=== PATIENT | female | born 1970 | race African-American/Black ===

== ENCOUNTER 2016-11-28 08:42 | Emergency (ER) | payer MEDICAID ==
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
[2016-11-28] MEDS ORDERED: HYDROCODONE/ACETAMINOPHEN 5-325 MG TABLET PO ONE (09:39)
[2016-11-28 11:15] VITALS: BP 120/80
== END 2016-11-28 10:58 | disposition home or self-care (01) ==
LOC: ER 08:42
DX: M54.2 Cervicalgia (principal); M25.521 Pain in right elbow; M54.89 Other dorsalgia; G89.29 Other chronic pain; M25.511 Pain in right shoulder; I10 Essential (primary) hypertension; K21.9 Gastro-esophageal reflux disease without esophagitis; Z91.013 Allergy to seafood
CPT/HCPCS: 72050; 99283

== ENCOUNTER 2017-05-14 21:14 | Emergency (ER) | payer MEDICAID ==
[2017-05-14 22:56] LABS: AMORPHOUS SEDIMENT,URINE TRACE /HPF; APPEARANCE,URINE SLIGHTLY-CLOUDY; BILIRUBIN,URINE NEGATIVE (NEGATIVE); GLUCOSE, URINE NEGATIVE (NEGATIVE); KETONES,URINE NEGATIVE (NEGATIVE); LEUKOCYTE ESTERASE,URINE MODERATE (NEGATIVE); NITRITE,URINE NEGATIVE (NEGATIVE); PROTEIN,URINE 30 mg/dL (NEGATIVE); URINE SPECIFIC GRAVITY 1.014; UROBILINOGEN,URINE NEGATIVE mg/dL (<2.0)
[2017-05-14] MEDS ORDERED: SULFAMETHOXAZOLE/TRIMETHOPRIM 800-160 MG TABLET PO ONE (23:18)
[2017-05-14] MEDS ORDERED: PHENAZOPYRIDINE HCL 200 MG TABLET PO ONE (23:19)
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
[2017-05-14 23:51] VITALS: BP 142/86
== END 2017-05-14 23:51 | disposition home or self-care (01) ==
LOC: ER 21:14
DX: N39.0 Urinary tract infection, site not specified (principal); I10 Essential (primary) hypertension; J45.909 Unspecified asthma, uncomplicated; Z91.013 Allergy to seafood; Z90.710 Acquired absence of both cervix and uterus
CPT/HCPCS: 99283; 87086; 82962; 81025; 87088; 81001; 87186; J3490 ×2

== ENCOUNTER 2017-09-13 11:53 | Emergency (ER) | payer MEDICAID ==
[2017-09-13 13:12] VITALS: BP 135/95
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
== END 2017-09-13 15:52 | disposition home or self-care (01) ==
LOC: ER 11:53
DX: M79.5 Residual foreign body in soft tissue (principal); M79.631 Pain in right forearm; R20.0 Anesthesia of skin; R20.2 Paresthesia of skin; Z91.013 Allergy to seafood; I10 Essential (primary) hypertension; J45.909 Unspecified asthma, uncomplicated
CPT/HCPCS: 99283

== ENCOUNTER 2017-11-04 15:13 | Emergency (ER) | payer MEDICAID ==
[2017-11-04] MEDS ORDERED: DIPHENHYDRAMINE HCL 50 MG/ML VIAL IV ONE (16:04)
[2017-11-04] MEDS ORDERED: METOCLOPRAMIDE HCL INJ/PF 10 MG/2 ML SDV IV ONE (16:05)
[2017-11-04] MEDS ORDERED: NORMAL SALINE 1000 ML 1,000 ML IV ONE (16:05)
[2017-11-04] MEDS ORDERED: KETOROLAC TROMETHAMINE INJ/PF 30 MG/1 ML SDV IV ONE (16:05)
--- NOTE | 2017-11-04 16:08 | ER Document Report ---
ED General - General Chief Complaint: Chest Pain Stated Complaint: NAUSEA,HEADACHE Time Seen by Provider: 11/04/17 15:51 Mode of Arrival: Ambulatory Information source: Patient Notes: 47-year-old female with a history of hypertension, asthma presents with complaint of headache that started 2 days prior to arrival. Patient states headache was gradual in onset. She describes it as initially starting at the back of her head but now located in her forehead. She describes it as a dull ache. She has associated nausea, photophobia. She denies any recent head injury. She denies fever, chills, chest pain, shortness of breath. She states she has had some fluttering of her chest. She does admit to frequent similar headaches. She has tried Tylenol without relief. TRAVEL OUTSIDE OF THE [place] IN LAST 30 DAYS: No - HPI Onset: Yesterday Onset/Duration: Gradual, Intermittent Quality of pain: Achy Severity: Mild Pain Level: 1 Associated symptoms: Body/muscle aches, Nausea, Shortness of breath. denies: Chest pain, Productive cough, Fever, Vomiting, Sinus pain/drainage Exacerbated by: Movement Relieved by: Denies Similar symptoms previously: Yes - Admits to similar frequent headaches. - Related Data Allergies/Adverse Reactions: shellfish derived Allergy (Severe, Verified 11/28/16 08:51) shrimp Allergy (Severe, Verified 11/28/16 08:51) Past Medical History - General Information source: Patient - Social History Smoking Status: Never Smoker Frequency of alcohol use: None Drug Abuse: None Lives with: Family Family History: DM, Hypertension, Malignancy, Thyroid Disfunction - Past Medical History Cardiac Medical History: Reports: Hx Hypertension Pulmonary Medical History: Reports: Hx Asthma Renal/ Medical History: Reports: Hx Ectopic . Denies: Hx Peritoneal Dialysis GI Medical History: Reports: Hx Gastroesophageal Reflux Disease Musculoskeltal Medical History: Reports Hx Musculoskeletal Trauma - Nose and finger fracture Psychiatric Medical History: Reports: Hx Anxiety Traumatic Medical History: Reports: Hx Fractures - Nose and finger Past Surgical History: Reports: Hx Section, Hx Gynecologic Surgery - Right oophorectomy for tubal , Hx Hysterectomy, Hx Oral Surgery - With symptoms, Hx Umbilical Hernia - Immunizations Immunizations up to date: Yes Hx Diphtheria, Pertussis, Tetanus Vaccination: No - Unknown Review of Systems - Review of Systems Constitutional: denies: Fever, Weakness EENT: denies: Eye pain, Eye discharge, Blurred vision, Nose congestion, Sinus pressure Cardiovascular: Palpitations Respiratory: Short of breath Gastrointestinal: Nausea. denies: Vomiting Genitourinary: denies: Dysuria Neurological/Psychological: Other - Headache Physical Exam - Vital signs Vitals: Pulse Resp BP Pulse Ox 89 16 136/94 H 96 11/04/17 15:50 11/04/17 15:50 11/04/17 15:50 11/04/17 15:50 - General General appearance: Appears well, Alert In distress: None - HEENT Head: Normocephalic, Atraumatic Eyes: Normal Conjunctiva: Normal Cornea: Normal - Temples nontender bilaterally Extraocular movements intact: Yes Pupils: PERRL Fundascopic: Normal Nerve palsy: No Visual yo normal: Yes Tympanic membrane: Normal Sinus: Normal Nasal: Normal Mucous membranes: Dry Neck: No: Brudzinski, Kernig's, Meningismus, Thyromegally - Respiratory Respiratory status: No respiratory distress. 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 Sensory: Normal - Psychological Associated symptoms: Normal affect, Normal mood Course - Re-evaluation Re-evalutation: 11/04/17 17:50 On reevaluation patient states her headache has improved. 11/04/17 17:53 Glucose found to be 72 which is not surprising since the patient has not eaten anything all day. She was given kai crackers, cranberry juice. Patient tolerating PO fluids. 11/04/17 18:07 47-year-old female with a history of hypertension and asthma presents with complaint of headache that started 1 day prior to arrival. Patient states it was gradual in onset, has been intermittent and now located in her forehead and described as an aching feeling. She has had associated nausea and photophobia.She admits to not eating anything today. She has tried Tylenol without relief. Upon arrival vitals were reviewed. Patient has a normal neurologic exam without evidence of meningismus or nuchal rigidity. BMP showed A glucose of 72 and normal kidney function. Patient received IV fluids, Reglan , Benadryl, Toradol. On reevaluation patient states that she is feeling better. I have low suspicion for meningitis, intracranial abnormality. Patient was tolerating food and fluids prior to discharge.Patient was discharged home with a prescription for Motrin. Laboratory 11/04/17 16:35 Sodium 140.5 Potassium 4.0 Chloride 101 Carbon Dioxide 28 Anion Gap 12 BUN 11 Creatinine 0.76 Est GFR ( Amer) > 60 Est GFR (Non-Af Amer) > 60 Glucose 72 L Calcium 9.7 Magnesium 2.0 Total Bilirubin 0.9 Direct Bilirubin 0.1 Neonat Total Bilirubin Not Reportable Neonat Direct Bilirubin Not Reportable Neonat Indirect Bili Not Reportable AST 27 ALT 38 Alkaline Phosphatase 68 Total Protein 7.0 Albumin 4.1 Chest X-Ray 11/04/17 16:09 IMPRESSION: NO SIGNIFICANT RADIOGRAPHIC FINDING IN THE CHEST. - Vital Signs Vital signs: Temp Pulse Resp BP Pulse Ox 89 16 136/94 H 96 11/04/17 15:50 11/04/17 15:50 11/04/17 15:50 11/04/17 15:50 - Laboratory Result Diagrams: 11/04/17 16:35 Laboratory results interpreted by me: 11/04/17 16:35 Glucose 72 L Discharge - Discharge Clinical Impression: Headache, Palpitations Condition: Good Disposition: HOME, SELF-CARE Instructions: Headache ([facility]), Palpitations (Irregular or Rapid Heartrate) ([facility]) Prescriptions: Ibuprofen [Motrin 600 Mg Tablet] 600 mg PO TID #15 tablet Referrals: MARCELO SHUKLA PA-C [Primary Care Provider] - Follow up as needed
--- NOTE | 2017-11-04 16:19 | EKG REPORT ---
SEVERITY:- NORMAL ECG - SINUS RHYTHM : Confirmed by: Kashif Briscoe MD 04-Nov-2017 16:18:37
--- NOTE | 2017-11-04 17:17 | RADIOLOGY REPORT (SQ) ---
EXAM DESCRIPTION: CHEST PA/LAT COMPLETED DATE/TIME: 11/04/2017 5:10 pm REASON FOR STUDY: palpatations COMPARISON: AP chest 12/13/2015 EXAM PARAMETERS: NUMBER OF VIEWS: two views TECHNIQUE: Digital Frontal and Lateral radiographic views of the chest acquired. RADIATION DOSE: NA LIMITATIONS: none FINDINGS: LUNGS AND PLEURA: No opacities, masses or pneumothorax. No pleural effusion. MEDIASTINUM AND HILAR STRUCTURES: No masses or contour abnormalities. HEART AND VASCULAR STRUCTURES: Heart normal size. No evidence for failure. BONES: No acute findings. HARDWARE: None in the chest. OTHER: No other significant finding. IMPRESSION: NO SIGNIFICANT RADIOGRAPHIC FINDING IN THE CHEST. TECHNICAL DOCUMENTATION: JOB ID: [id number] [employer]- All Rights Reserved Reading location - IP/workstation name: [email or web address]
[2017-11-04 17:35] LABS: ALANINE AMINOTRANSFERASE 38 U/L (9-52); ALBUMIN 4.1 g/dL (3.5-5.0); ALKALINE PHOSPHATASE 68 U/L (38-126); ANION GAP 12 (5-19); ASPARTATE AMINO TRANSFERASE 27 U/L (14-36); BILIRUBIN,DIRECT 0.1 mg/dL (0.0-0.4); BILIRUBIN,TOTAL 0.9 mg/dL (0.2-1.3); BLOOD UREA NITROGEN 11 mg/dL (7-20); CALCIUM 9.7 mg/dL (8.4-10.2); CARBON DIOXIDE 28 mmol/L (22-30); CHLORIDE 101 mmol/L (98-107); GLUCOSE 72 mg/dL (75-110); SODIUM 140.5 mmol/L (137-145)
[2017-11-04 18:37] VITALS: BP 141/74
== END 2017-11-04 18:47 | disposition home or self-care (01) ==
LOC: ER 15:13
DX: R51 Headache (principal); R00.2 Palpitations; R07.9 Chest pain, unspecified; R11.0 Nausea; M79.1 Myalgia; I10 Essential (primary) hypertension; Z91.013 Allergy to seafood
CPT/HCPCS: 93005; 99285; 96361; 96374; 96375; 36415; 83735; 80053; 71046; 93010; J1200; J1885; J2765; J7030

== ENCOUNTER 2018-03-11 18:02 | Emergency (ER) | payer MEDICAID ==
--- NOTE | 2018-03-11 20:00 | ER Document Report ---
ED General - General Chief Complaint: Knee Pain Stated Complaint: R KNEE PAIN Time Seen by Provider: 03/11/18 19:40 Mode of Arrival: Ambulatory Information source: Patient Notes: 47-year-old female patient presents to the emergency department with multiple complaints. Patient complains of bilateral lower extremity swelling with pain to the right lower extremity, patient describes the pain as a pressure from the swelling. Patient also complains of productive cough with intermittent pink sputum. Patient does report that she has had significant weight gain over the last few months. Patient has been seen by her primary care provider, Marcelo pang who did refer her to a building construction teacher for evaluation of the edema however this was at least 6 months ago. Patient denies any chest pain, shortness of breath or fever. TRAVEL OUTSIDE OF THE [place] IN LAST 30 DAYS: No - Related Data Allergies/Adverse Reactions: shellfish derived Allergy (Severe, Verified 11/28/16 08:51) shrimp Allergy (Severe, Verified 11/28/16 08:51) Past Medical History - General Information source: Patient - Social History Smoking Status: Never Smoker Frequency of alcohol use: None Drug Abuse: None Lives with: Spouse/Significant other Family History: DM, Hypertension, Malignancy, Thyroid Disfunction - Medical History Medical History: Negative - Past Medical History Cardiac Medical History: Reports: Hx Hypertension Pulmonary Medical History: Reports: Hx Asthma Renal/ Medical History: Reports: Hx Ectopic . Denies: Hx Peritoneal Dialysis GI Medical History: Reports: Hx Gastroesophageal Reflux Disease Musculoskeletal Medical History: Reports Hx Musculoskeletal Trauma - Nose and finger fracture Psychiatric Medical History: Reports: Hx Anxiety Traumatic Medical History: Reports: Hx Fractures - Nose and finger Past Surgical History: Reports: Hx Abdominal Surgery - umbilical hernia, Hx Section, Hx Gynecologic Surgery - Right oophorectomy for tubal , Hx Hysterectomy, Hx Oral Surgery - With symptoms, Hx Umbilical Hernia - Immunizations Immunizations up to date: Yes Hx Diphtheria, Pertussis, Tetanus Vaccination: No - Unknown Review of Systems - Review of Systems Constitutional: See HPI EENT: No symptoms reported Cardiovascular: No symptoms reported Respiratory: No symptoms reported Gastrointestinal: No symptoms reported Genitourinary: No symptoms reported Female Genitourinary: No symptoms reported Musculoskeletal: No symptoms reported Skin: No symptoms reported Hematologic/Lymphatic: No symptoms reported Neurological/Psychological: No symptoms reported Physical Exam - Vital signs Vitals: Temp Pulse Resp BP Pulse Ox 98.6 F 104 H 18 128/79 H 99 03/11/18 18:13 03/11/18 18:13 03/11/18 18:13 03/11/18 18:13 03/11/18 18:13 - Notes Notes: PHYSICAL EXAMINATION: GENERAL: Well-appearing, well-nourished and in no acute distress. HEAD: Atraumatic, normocephalic. EYES: Pupils equal round and reactive to light, extraocular movements intact, conjunctiva are normal. ENT: Nares patent, oropharynx clear without exudates. Moist mucous membranes. NECK: Normal range of motion, supple without lymphadenopathy LUNGS: Breath sounds clear to auscultation bilaterally and equal. No wheezes rales or rhonchi. HEART: Regular rate and rhythm without murmurs ABDOMEN: Soft, nontender, nondistended abdomen. No guarding, no rebound. No masses appreciated. Female : deferred Musculoskeletal: Normal range of motion, nonpitting edema to bilateral lower extremities, swelling is increased to the right lower extremity. No cyanosis. NEUROLOGICAL: Cranial nerves grossly intact. Normal speech, normal gait. Normal sensory, motor exams PSYCH: Normal mood, normal affect. SKIN: Warm, Dry, normal turgor, no rashes or lesions noted. Course - Re-evaluation Re-evalutation: 03/11/18 19:58 Patient has multiple complaints of most concern to her is her leg swelling bilaterally, swelling is slightly worse to the right lower extremity patient denies any specific pain, patient does report a discomforts due to the swelling pressure. Patient was seen by building construction teacher and cleared after an echocardiogram was done and showed that she had some type of regurgitation that patient reports they are going to monitor her for. Patient does report that she has a productive cough with intermittent pink sputum. Patient physical examination is unremarkable other than the swelling to her lower extremities. I will order basic labs to ensure that patient does not having any infectious process or CHF. CBC, BNP and comprehensive metabolic panel are unremarkable. Urinalysis with large leukocyte esterase. Will treat patient for urinary tract infection, will send urine for culture. Patient will follow up with her primary care provider in the next 3-5 days for a follow-up. - Vital Signs Vital signs: Temp Pulse Resp BP Pulse Ox 98.8 F 78 16 130/84 H 99 03/11/18 21:06 03/11/18 21:06 03/11/18 21:06 03/11/18 21:06 03/11/18 21:06 - Laboratory Result Diagrams: 03/11/18 20:06 03/11/18 20:06 Laboratory results interpreted by me: 03/11/18 03/11/18 19:52 20:06 AST 43 H Urine Blood SMALL H Urine Urobilinogen 2.0 H Ur Leukocyte Esterase LARGE H Discharge - Discharge Clinical Impression: Urinary tract infection Qualifiers: Urinary tract infection type: site unspecified Hematuria presence: without hematuria Qualified Code(s): N39.0 - Urinary tract infection, site not specified Disposition: HOME, SELF-CARE Additional Instructions: Urinary Tract Infection Your evaluation indicates that you have a urinary tract infection. This is due to germs growing in the bladder. This is a common problem. This infection usually responds quickly to antibiotics. Your antibiotic should be taken exactly as prescribed. Drink plenty of fluids -- three to four quarts a day. Occasionally, a bladder anesthetic will be prescribed to help stop the feeling of urgency until the antibiotic has a chance to clear the infection. This may cause your urine to be dark orange. Certain urine infections require a culture. If the doctor obtained a culture, the results will be back in two days. You should call to see if a change in treatment is needed. A repeat urinalysis after you finish treatment is often recommended. The physician will let you know if further testing is required. Call the doctor if you develop fever, chills, flank pain, inability to urinate, or blood in the urine. Please take the antibiotics as prescribed. Complete the entire course of antibiotics even if you are feeling better or not having symptoms. Your blood work today was normal. There is no evidence of any congestive heart failure or infection. I would like you to follow-up with your primary care provider Marcelo pang early this week for a follow-up for your peripheral edema. Prescriptions: Cephalexin Monohydrate [Keflex 500 mg Capsule] 500 mg PO Q6H 5 Days #20 capsule Forms: Return to Work Referrals: MARCELO PANG PA-C [Primary Care Provider] - Follow up as needed
[2018-03-11 20:16] LABS: APPEARANCE,URINE SLIGHTLY-CLOUDY; BILIRUBIN,URINE NEGATIVE (NEGATIVE); COLOR,URINE YELLOW; GLUCOSE, URINE NEGATIVE (NEGATIVE); KETONES,URINE NEGATIVE (NEGATIVE); LEUKOCYTE ESTERASE,URINE LARGE (NEGATIVE); NITRITE,URINE NEGATIVE (NEGATIVE); PROTEIN,URINE NEGATIVE (NEGATIVE); URINE SPECIFIC GRAVITY 1.013
[2018-03-11 20:20] LABS: ABSOLUTE BASOPHILS # (AUTO) 0.1 10^3/uL (0.0-0.2); ABSOLUTE EOSINOPHILS # (AUTO) 0.1 10^3/uL (0.0-0.6); ABSOLUTE LYMPHOCYTES (AUTO) 2.8 10^3/uL (0.5-4.7); ABSOLUTE MONOCYTES (AUTO) 0.6 10^3/uL (0.1-1.4); ABSOLUTE NEUT (AUTO) 3.3 10^3/uL (1.7-8.2); EOSINOPHILS % (AUTO) 1.8 % (0-6); HEMATOCRIT 38.1 % (36.0-47.0); HEMOGLOBIN 12.9 g/dL (12.0-15.5); LYMPHOCYTES % (AUTO) 40.7 % (13-45); MEAN CORPUSCULAR HEMOGLOBIN 27.5 pg (27.0-33.4); MEAN CORPUSCULAR HGB CONC 33.9 g/dL (32.0-36.0); MEAN CORPUSCULAR VOLUME 81 fl (80-97); MONOCYTES % (AUTO) 8.5 % (3-13); PLATELET COUNT 371 10^3/uL (150-450); RED BLOOD COUNT 4.69 10^6/uL (3.72-5.28); TOTAL CELLS COUNTED % (AUTO) 100 %
[2018-03-11 20:36] LABS: ALANINE AMINOTRANSFERASE 44 U/L (9-52); ALBUMIN 3.8 g/dL (3.5-5.0); ALKALINE PHOSPHATASE 108 U/L (38-126); ANION GAP 10 (5-19); ASPARTATE AMINO TRANSFERASE 43 U/L (14-36); BILIRUBIN,DIRECT 0.2 mg/dL (0.0-0.4); BILIRUBIN,TOTAL 0.7 mg/dL (0.2-1.3); BLOOD UREA NITROGEN 9 mg/dL (7-20); CALCIUM 9.4 mg/dL (8.4-10.2); CARBON DIOXIDE 27 mmol/L (22-30); CHLORIDE 104 mmol/L (98-107); GLUCOSE 93 mg/dL (75-110); POTASSIUM 4.2 mmol/L (3.6-5.0); SODIUM 140.7 mmol/L (137-145); TOTAL PROTEIN 7.1 g/dL (6.3-8.2)
[2018-03-11] MEDS ORDERED: CEPHALEXIN 500 MG CAPSULE PO ONE (20:59)
[2018-03-11 21:16] VITALS: BP 130/84
== END 2018-03-11 21:16 | disposition home or self-care (01) ==
LOC: ER 18:02
DX: N39.0 Urinary tract infection, site not specified (principal); R60.0 Localized edema; M79.89 Other specified soft tissue disorders; R05 Cough; M25.561 Pain in right knee; R63.5 Abnormal weight gain; Z68.32 Body mass index [BMI] 32.0-32.9, adult; I10 Essential (primary) hypertension; J45.909 Unspecified asthma, uncomplicated; Z91.013 Allergy to seafood
CPT/HCPCS: 36415; 80053; 81001; 83880; 85025; 87086; 99283

== ENCOUNTER 2018-12-20 10:01 | Emergency (ER) | payer MEDICAID ==
[2018-12-20] MEDS ORDERED: ASPIRIN 81 MG TABLET, CHEWABLE PO ONE (10:55)
--- NOTE | 2018-12-20 10:57 | ER Document Report ---
ED Medical Screen (RME) - General Chief Complaint: Chest Pain Stated Complaint: CHEST PAIN Time Seen by Provider: 12/20/18 10:46 Primary Care Provider: MARCELO SHUKLA PA-C [Primary Care Provider] - Follow up as needed Mode of Arrival: Ambulatory Information source: Patient TRAVEL OUTSIDE OF THE [place] IN LAST 30 DAYS: No - HPI Patient complains to provider of: CP, PALPITATIONS Notes: 12/20/18 10:56 Patient here with complaints of palpitations. She states that she was cleaning her bathroom yesterday and thinks that the chemicals were causing her to feel somewhat short of breath. She used her albuterol inhaler and then immediately felt like her heart was racing and felt lightheaded. This lasted for most of the evening last night so she was concerned and wanted to have this evaluated. She states that she has intermittent episodes where she feels like her heart is beating fast and hard. No chest pain at this time. No recent long trips or surgeries, leg pain or leg swelling, hormone use, cancer, history of DVT or PE. Exam Nontoxic, no distress. Heart sounds normal. Lung sounds clear and equal throughout. Plan EKG, CBC, CMP, CPK, CK-MB, TSH, magnesium, chest x-ray. An initial examination was made on the patient as part of the triage process, and it was determined a more comprehensive evaluation was necessary. Initial labs were ordered and patient was transferred to another provider in the ED who assumed care and finished evaluation and plan. - Related Data Allergies/Adverse Reactions: shellfish derived Allergy (Severe, Verified 12/20/18 10:48) shrimp Allergy (Severe, Verified 12/20/18 10:48) Past Medical History - Social History Chew tobacco use (# tins/day): No Frequency of alcohol use: None Drug Abuse: None - Past Medical History Cardiac Medical History: Reports: Hx Hypertension Pulmonary Medical History: Reports: Hx Asthma Renal/ Medical History: Reports: Hx Ectopic . Denies: Hx Peritoneal Dialysis GI Medical History: Reports: Hx Gastroesophageal Reflux Disease Musculoskeltal Medical History: Reports Hx Musculoskeletal Trauma - Nose and finger fracture Psychiatric Medical History: Reports: Hx Anxiety Traumatic Medical History: Reports: Hx Fractures - Nose and finger Past Surgical History: Reports: Hx Abdominal Surgery - umbilical hernia, Hx Section, Hx Gynecologic Surgery - Right oophorectomy for tubal , Hx Hysterectomy, Hx Oral Surgery - With symptoms, Hx Umbilical Hernia - Immunizations Immunizations up to date: Yes Hx Diphtheria, Pertussis, Tetanus Vaccination: No - Unknown Physical Exam - Vital signs Vitals: Temp Pulse Resp BP Pulse Ox 98.2 F 71 18 138/74 H 97 12/20/18 10:06 12/20/18 10:06 12/20/18 10:06 12/20/18 10:06 12/20/18 10:06 Course - Vital Signs Vital signs: Temp Pulse Resp BP Pulse Ox 98.2 F 71 18 138/74 H 97 12/20/18 10:06 12/20/18 10:06 12/20/18 10:06 12/20/18 10:06 12/20/18 10:06 Doctor's Discharge - Discharge Referrals: MARCELO SHUKLA PA-C [Primary Care Provider] - Follow up as needed
[2018-12-20 11:27] LABS: ABSOLUTE EOSINOPHILS # (AUTO) 0.1 10^3/uL (0.0-0.6); ABSOLUTE LYMPHOCYTES (AUTO) 2.2 10^3/uL (0.5-4.7); ABSOLUTE MONOCYTES (AUTO) 0.4 10^3/uL (0.1-1.4); ABSOLUTE NEUT (AUTO) 1.4 10^3/uL (1.7-8.2); BASOPHILS % (AUTO) 1.1 % (0-2); HEMATOCRIT 38.2 % (36.0-47.0); HEMOGLOBIN 12.7 g/dL (12.0-15.5); LYMPHOCYTES % (AUTO) 53.9 % (13-45); MEAN CORPUSCULAR HGB CONC 33.1 g/dL (32.0-36.0); MEAN CORPUSCULAR VOLUME 81 fl (80-97); MONOCYTES % (AUTO) 8.6 % (3-13); PLATELET COUNT 354 10^3/uL (150-450); RED BLOOD COUNT 4.69 10^6/uL (3.72-5.28); RED CELL DISTRIBUTION WIDTH 13.2 % (11.5-14.0); SEGMENTED NEUTROPHILS % (AUTO) 33.4 % (42-78); TOTAL CELLS COUNTED % (AUTO) 100 %; WHITE BLOOD COUNT 4.1 10^3/uL (4.0-10.5)
[2018-12-20 11:46] LABS: ALANINE AMINOTRANSFERASE 21 U/L (9-52); ALBUMIN 3.7 g/dL (3.5-5.0); ALKALINE PHOSPHATASE 80 U/L (38-126); ANION GAP 8 (5-19); ASPARTATE AMINO TRANSFERASE 22 U/L (14-36); BILIRUBIN,DIRECT 0.2 mg/dL (0.0-0.4); BILIRUBIN,TOTAL 0.8 mg/dL (0.2-1.3); BLOOD UREA NITROGEN 10 mg/dL (7-20); CALCIUM 9.3 mg/dL (8.4-10.2); CARBON DIOXIDE 27 mmol/L (22-30); CHLORIDE 106 mmol/L (98-107); CREATINE KINASE 212 U/L (30-135); GLUCOSE 83 mg/dL (75-110); POTASSIUM 4.1 mmol/L (3.6-5.0); SODIUM 140.5 mmol/L (137-145)
--- NOTE | 2018-12-20 11:51 | ER Document Report ---
ED Cardiac - General Chief Complaint: Chest Pain Stated Complaint: CHEST PAIN Time Seen by Provider: 12/20/18 10:46 Primary Care Provider: MARCELO SHUKLA PA-C [Primary Care Provider] - Follow up as needed Mode of Arrival: Ambulatory Notes: Patient says that she is experiencing episodes of her heart beating really fast and sometimes irregular. She is noted it more frequently after she uses her inhaler for her asthma, but it occurs at other times when she is not using her inhalers. She noted it quite a bit yesterday after her inhaler. Patient says she has been having these episodes intermittently over the past couple years. Said she had an ultrasound of her heart 2 years ago. Seen here in October for the same thing. Says that no one can find a cause for her symptoms. Today, she is also feeling tired, weak, feeling some tightness in the lower anterior substernal region going into her back, some dry cough yesterday and this morning, and short of breath. As mentioned, patient does have a history of asthma for which he uses an inhaler. She is never had any blood clots in her le gs. Patient denies any fever. Does not have any UTI symptoms. Patient has had an umbilical hernia repair, tubal , and a . She has GERD. Does not smoke. No history of any heart disease. TRAVEL OUTSIDE OF THE [place] IN LAST 30 DAYS: No - Related Data Allergies/Adverse Reactions: shellfish derived Allergy (Severe, Verified 12/20/18 10:48) shrimp Allergy (Severe, Verified 12/20/18 10:48) Past Medical History - General Information source: Patient - Social History Smoking Status: Never Smoker Chew tobacco use (# tins/day): No Frequency of alcohol use: None Drug Abuse: None Family History: Reviewed & Not Pertinent, DM, Hypertension, Malignancy, Thyroid Disfunction Patient has suicidal ideation: No Patient has homicidal ideation: No - Past Medical History Cardiac Medical History: Reports: Hx Hypertension Pulmonary Medical History: Reports: Hx Asthma Renal/ Medical History: Reports: Hx Ectopic GI Medical History: Reports: Hx Gastroesophageal Reflux Disease Musculoskeletal Medical History: Reports Hx Musculoskeletal Trauma - Nose and finger fracture Psychiatric Medical History: Reports: Hx Anxiety Traumatic Medical History: Reports: Hx Fractures - Nose and finger Past Surgical History: Reports: Hx Abdominal Surgery - umbilical hernia, Hx Section, Hx Gynecologic Surgery - Right oophorectomy for tubal pr egnancy, Hx Hysterectomy, Hx Oral Surgery - With symptoms, Hx Umbilical Hernia - Immunizations Immunizations up to date: Yes Hx Diphtheria, Pertussis, Tetanus Vaccination: No - Unknown Review of Systems - Review of Systems Notes: REVIEW OF SYSTEMS: CONSTITUTIONAL : Denies fever. EENT: Denies eye, ear, nose or mouth or throat pain or other symptoms. CARDIOVASCULAR: See HPI. RESPIRATORY: Had some cough yesterday afternoon and this morning. Also feeling short of breath at times. GASTROINTESTINAL: Denies abdominal pain or nausea, vomiting, or diarrhea. GENITOURINARY: Denies difficulty or painful urinating, urinary frequency, blood in urine. MUSCULOSKELETAL: Denies back or neck pain. Denies joint pain or swelling. No swelling of either lower extremity. Negative Homans bilaterally. SKIN: Denies rash or skin lesions. NEUROLOGICAL: Denies LOC or altered mental status. Denies headache. Denies sensory loss or motor deficits. ALL OTHER SYSTEMS REVIEWED AND NEGATIVE. Physical Exam - Vital signs Vitals: Temp Pulse Resp BP Pulse Ox 98.2 F 71 18 138/74 H 97 12/20/18 10:06 12/20/18 10:06 12/20/18 10:06 12/20/18 10:06 12/20/18 10:06 Interpretation: Normal. No: Tachycardic, Hypoxic, Tachypneic, Febrile Notes: PHYSICAL EXAMINATION: GENERAL: Well-appearing, in no acute distress. Anxious. HEAD: Atraumatic, normocephalic. EYES: Pupils equal round and reactive to light, extraocular movements intact. ENT: oropharynx clear without exudates. Moist mucous membranes. NECK: Normal range of motion, supple. LUNGS: Breath sounds clear and equal bilaterally. No wheezes present. HEART: Regular rate and rhythm without murmurs. No extra beats or abnormal beats heard. ABDOMEN: Soft, nontender. No guarding or rebound. No masses. BACK: No tenderness throughout entire back. EXTREMITIES: Normal range of motion without pain. No swelling and no pain in the lower extremities. Negative Homans bilaterally. NEUROLOGICAL: Normal speech, normal gait. Normal sensory, motor, and reflex exams. Awake, alert, and oriented x3. Cranial nerves normal. PSYCH: Normal mood, normal affect. SKIN: Warm, dry, no rashes. Course - Re-evaluation Re-evalutation: 12/20/18 12:29 Patient made aware of her very minimally elevated CPK All other lab work essentially normal. EKG normal. Chest x-ray normal. Reassured patient that this is probably a normal variant with occasional extra beats. I would recommend that she follow-up with her primary care provider, Marcelo Shukla, if she persists in having the symptoms for more than a couple of weeks more. She may merit a low-dose beta-ben, but at this time I do not think that is necessary. - Vital Signs Vital signs: Temp Pulse Resp BP Pulse Ox 98.2 F 71 14 145/94 H 100 12/20/18 10:06 12/20/18 10:06 12/20/18 12:01 12/20/18 12:01 12/20/18 12:01 - Laboratory Result Diagrams: 12/20/18 11:02 12/20/18 11:02 Laboratory results interpreted by wi: 12/20/18 12/20/18 11:02 11:02 Seg Neutrophils % 33.4 L Lymphocytes % 53.9 H Absolute Neutrophils 1.4 L Creatine Kinase 212 H - Diagnostic Test Radiology results interpreted by wi: 12/20/18 20:22 Chest x-ray with some band atelectasis in both bases. Does not appear to be an infectious origin. - EKG Interpretation by Nj EKG shows normal: Sinus rhythm Rate: Normal Rhythm: NSR Additional EKG results interpreted by wi: 12/20/18 20:20 EKG is completely normal. Discharge - Discharge Clinical Impression: Palpitations Condition: Stable Disposition: HOME, SELF-CARE Additional Instructions: Palpitations (Irregular/Rapid Heartrate) Irregular or rapid heartbeat is called "palpitation." To diagnose the cause of palpitation, we have to "catch it in the act" with an EKG. Sinus Tachycardia: This is a rapid (but NORMAL) rhythm that can be due to fever, pain, anxiety, lack of sleep, over-exertion, or drugs. Cold medications, caffeine, and diet pills are particularly likely to cause tachycardia. Usually, all that's required is rest, reassurance, and avoiding caffeine, alcohol, nicotine, and unnecessary medicines. Paroxysmal Atrial Tachycardia (PAT): This abnormally rapid heartbeat is caused by a "short circuit" in the electrical system of the heart. It is not dangerous, unless other heart disease is present. These attacks of PAT may occur occasionally for years. Medication is available for treatment. Paroxysmal Atrial Fibrillation or Atrial Flutter: This is irregular electrical activity in the upper heart chamber. These abnormal rhythms often occur with valve disease or in hearts damaged by hardening of the arteries. These rhythms usually require further testing, for example a cardiac echo. Premature Beats: Extra beats occur more commonly after caffeine, nicotine, alcohol, cold pills, diet pills. Emotional stress or fatigue also provoke them. Extra beats are only dangerous when heart disease is present. They usually need no treatment. If they're frequent, or if evidence of heart disease develops, medication can be given to suppress them. If we were unable to "catch" the palpitations on EKG, you should try to get an EKG immediately if the symptoms begin again. Contact the physician at once if you develop persistent lightheadedness, shortness of breath, chest pain, or swelling of the ankles. NORMAL EXAM AND WORKUP: At this time, your examination and workup show no significant abnormality. No significant abnormal physical findings were noted. All laboratory, EKG, and imaging (x-ray, CT scans, ultrasound) studies that were ordered show no significant abnormality. Although your examination and all studies that were ordered showed no significant abnormal finding, there are no examinations and no studies that are 100% accurate. There is always the possibility that some abnormality could exist and not be detected with physical examination or within the limits and capabilities of laboratory and other studies. You should return or follow up as you were instructed on your visit today for further evaluation if your symptoms do not resolve. You had a very minimal elevation of a chemical called creatinine phosphokinase for CPK which comes from muscle breakdown, usually seen with heavy lifting, etc. I do not think it is of any clinical significance. Follow-up With Marcelo Shukla if your symptoms persist for more than a couple of weeks. She may try a medication like a beta-ben medicine to treat your palpitations. FOLLOW-UP CARE: If you have been referred to a physician for follow-up care, call the physicians office for an appointment as you were instructed or within the next two days. If you experience worsening or a significant change in your symptoms, notify the physician immediately or return to the Emergency Department at any time for re-evaluation. Forms: Return to Work Referrals: MARCELO SHUKLA PA-C [Primary Care Provider] - Follow up as needed
[2018-12-20 11:58] LABS: CREATINE KINASE MB 0.57 ng/mL (<4.55)
[2018-12-20 12:02] LABS: TROPONIN I < 0.012 ng/mL
--- NOTE | 2018-12-20 12:02 | RADIOLOGY REPORT (SQ) ---
EXAM DESCRIPTION: CHEST SINGLE VIEW COMPLETED DATE/TIME: 12/20/2018 11:29 am REASON FOR STUDY: CP, PALPITATIONS COMPARISON: Two-view chest 11/04/2017 CT chest 05/26/2016, 12/13/2015 EXAM PARAMETERS: NUMBER OF VIEWS: One view. TECHNIQUE: Single frontal radiographic view of the chest acquired. RADIATION DOSE: NA LIMITATIONS: None. FINDINGS: LUNGS AND PLEURA: Bibasilar platelike atelectasis is present. Lungs are otherwise well in flated and clear. No pleural effusion. No pneumothorax. MEDIASTINUM AND HILAR STRUCTURES: No masses. Contour normal. HEART AND VASCULAR STRUCTURES: Heart normal in size. Normal vasculature. BONES: No acute findings. HARDWARE: None in the chest. OTHER: No other significant finding. IMPRESSION: Bibasilar bandlike atelectasis. TECHNICAL DOCUMENTATION: JOB ID: [id number] [employer]- All Rights Reserved Reading location - IP/workstation name: [email or web address]
[2018-12-20 12:37] VITALS: BP 145/94
--- NOTE | 2018-12-20 23:15 | EKG REPORT ---
SEVERITY:- NORMAL ECG - SINUS RHYTHM : Confirmed by: Haseeb Chen 20-Dec-2018 23:15:08
== END 2018-12-20 12:44 | disposition home or self-care (01) ==
LOC: ER 10:01
DX: R00.2 Palpitations (principal); J98.11 Atelectasis; J45.909 Unspecified asthma, uncomplicated; R74.8 Abnormal levels of other serum enzymes; R53.83 Other fatigue; R53.1 Weakness; R07.89 Other chest pain; R05 Cough; R06.02 Shortness of breath; I10 Essential (primary) hypertension; Z91.013 Allergy to seafood
CPT/HCPCS: 36415; 71045; 80053; 82550; 82553; 83735; 84443; 84484; 85025; 93005; 93010; 99285

== ENCOUNTER → 2020-01-24 | Outpatient (CLI) | payer MEDICAID ==
--- NOTE | 2020-01-24 11:12 | WOMENS IMAGING REPORT ---
EXAM DESCRIPTION: BILAT SCREENING MAMMO W/CAD IMAGES COMPLETED DATE/TIME: 01/24/2020 10:07 am REASON FOR STUDY: Z12.31 ENCOUNTER FOR SCREENING MAMMOGRAM FOR MALIGNANT NEOPLASM OF BREAST Z12.31 ENCNTR SCREEN MAMMOGRAM FOR MALIGNANT NEOPLASM OF BOBY COMPARISON: 2014 EXAM PARAMETERS: Standard craniocaudal and mediolateral oblique views of each breast recorded using digital acquisition. Read with the assistance of CAD. .FORM[facility] [employer] Professional Version 9.2 LIMITATIONS: None. FINDINGS: No suspicious masses, suspicious calcifications or architectural distortion. No areas of c oncern. IMPRESSION: NEGATIVE MAMMOGRAM. BIRADS 1 BREAST DENSITY: c. The breasts are heterogeneously dense, which may obscure small masses. BIRAD: ASSESSMENT: 1 NEGATIVE RECOMMENDATION: ROUTINE SCREENING COMMENT: The patient has been notified of the results by letter per MQSA requirements. Additional no tification policies are in place for contacting patient with suspicious or incomplete findings. Quality ID #[id number]: The [employer] recommends an annual screening mammogram for women aged 40 years or over. This facility utilizes a reminder system to ensure that all patients receive reminder letters, and/or direct phone calls for appointments. This includes reminders for routine scr eening mammograms, diagnostic mammograms, or other Breast Imaging Interventions when appropriate. Th is patient will be placed in the appropriate reminder system. TECHNICAL DOCUMENTATION: FINDING NUMBER: (1) ASSESSMENT: (1) JOB ID: [id number] 2010 [employer]- All Rights Reserved Reading location - IP/workstation name: [email or web address]
== END ==
LOC: WI 09:38
PROVIDERS: ATTEND Nurse Practitioner Family
DX: Z12.31 Encounter for screening mammogram for malignant neoplasm of breast (principal)
CPT/HCPCS: 77067

== ENCOUNTER → 2020-02-03 | Outpatient (CLI) | payer MEDICAID ==
[2020-02-03 11:31] LABS: POTASSIUM 3.8 mmol/L (3.6-5.0)
== END ==
LOC: OD 10:31
PROVIDERS: ATTEND Nurse Practitioner Family
DX: I10 Essential (primary) hypertension (principal)
CPT/HCPCS: 36415; 80051

== ENCOUNTER → 2020-02-18 | Outpatient (CLI) | payer MEDICAID ==
--- NOTE | 2020-02-18 13:15 | RADIOLOGY REPORT (SQ) ---
EXAM DESCRIPTION: CT ABD/PELVIS NO ORAL OR IV IMAGES COMPLETED DATE/TIME: 02/18/2020 12:49 pm REASON FOR STUDY: R31.9 HEMATURIA, UNSPECIFIED R31.9 HEMATURIA, UNSPECIFIED COMPARISON: 05/26/2016 TECHNIQUE: CT scan of the abdomen and pelvis performed without intravenous or oral contrast. Images reviewed with lung, soft tissue, and bone windows. Reconstructed coronal and sagittal MPR images revi ewed. All images stored on PACS. All CT scanners at this facility use dose modulation, iterative reconstruction, and/or weight based d osing when appropriate to reduce radiation dose to as low as reasonably achievable (ALARA). [facility]: Dose Right [facility]: CareDose [facility]: Dose Right [facility]: Teradose 4D [facility]: Smart LaserLeap RADIATION DOSE: CT Rad equipment meets quality standard of care and radiation dose reduction techniq ues were employed. CTDIvol: 8.4 mGy. DLP: 451 mGy-cm.mGy. LIMITATIONS: None. FINDINGS: LOWER CHEST: No significant findings. No nodules or infiltrates. NON-CONTRASTED LIVER, SPLEEN, ADRENALS: Evaluation limited by lack of IV contrast. No identified sign ificant masses. PANCREAS: No masses. No peripancreatic inflammatory changes. GALLBLADDER: Contracted. No gallstones. RIGHT KIDNEY AND URETER: No suspicious masses. Assessment limited by lack of IV contrast. No signif icant calcifications. No hydronephrosis or hydroureter. LEFT KIDNEY AND URETER: No suspicious masses. Assessment limited by lack of IV contrast. No signifi cant calcifications. No hydronephrosis or hydroureter. AORTA AND RETROPERITONEUM: No aneurysm. No retroperitoneal masses or adenopathy. BOWEL AND PERITONEAL CAVITY: No obvious masses or inflammatory changes. No free fluid. APPENDIX: Not identified. There is no pericecal inflammation. PELVIS, BLADDER, AND ABDOMINAL WALL:Urinary bladder is normal. There is 34 mm left adnexal cyst. BONES: No significant findings. OTHER: No other significant finding. IMPRESSION: 1. No urinary pathology is seen. 2. There is a 34 mm left adnexal cyst. This is almost certainly benign. No additional follow-up is recommended for this. COMMENT: Quality ID # [id number]: Final reports with documentation of one or more dose reduction techniques (e.g., Automated exposure control, adjustment of the mA and/or kV according to patient size, use of iterative reconstruction technique) TECHNICAL DOCUMENTATION: JOB ID: [id number] 2010 [employer]- All Rights Reserved Reading location - IP/workstation name: [email or web address]
== END ==
LOC: RAD 12:22
PROVIDERS: ATTEND Nurse Practitioner Family
DX: R31.9 Hematuria, unspecified (principal); M54.5 Low back pain; R10.9 Unspecified abdominal pain; N94.89 Other specified conditions associated with female genital organs and menstrual cycle
CPT/HCPCS: 74176

== ENCOUNTER → 2020-02-28 | Outpatient (CLI) | payer MEDICAID ==
--- NOTE | 2020-02-28 14:53 | RADIOLOGY REPORT (SQ) ---
EXAM DESCRIPTION: LUMBAR SPINE COMPLETE IMAGES COMPLETED DATE/TIME: 02/28/2020 2:25 pm REASON FOR STUDY: ACUTE RT SIDED LOW BACK PAIN WITHOUT SCIATICA M54.5 LOW BACK PAIN COMPARISON: None. NUMBER OF VIEWS: Five views including obliques. TECHNIQUE: AP, lateral, oblique, and sacral radiographic images acquired of the lumbar spine. LIMITATIONS: None. FINDINGS: MINERALIZATION: Normal. SEGMENTATION: Normal. No transitional anatomy. ALIGNMENT: Minimal dextroscoliosis VERTEBRAE: Maintained height. No fracture or worrisome bone lesion. DISCS: Preserved height. No significant osteophytes or end plate irregularity. POSTERIOR ELEMENTS: Pedicles and facets are intact. No pars defect or posterior arch defects. HARDWARE: None in the spine. PARASPINAL SOFT TISSUES: Normal. PELVIS: Intact as visualized. No fractures or worrisome bone lesions. SI joints intact. OTHER: No other significant finding. IMPRESSION: Minimal scoliosis. No acute finding. TECHNICAL DOCUMENTATION: JOB ID: [id number] 2010 [employer]- All Rights Reserved Reading location - IP/workstation name: [email or web address]
== END ==
LOC: OD 13:54
PROVIDERS: ATTEND Nurse Practitioner Family
DX: M41.86 Other forms of scoliosis, lumbar region (principal); M54.5 Low back pain
CPT/HCPCS: 72110

== ENCOUNTER 2020-03-15 09:34 | Emergency (ER) | payer MEDICAID ==
--- NOTE | 2020-03-15 10:43 | ER Document Report ---
ED General - General Chief Complaint: Shoulder Pain Stated Complaint: DIARRHEA,BACK PAIN Primary Care Provider: OBED DARDEN NP [Primary Care Provider] - Follow up as needed Notes: Patient is a 49-year-old -French female who status post partial hysterectomy with a history of hypertension, GERD and asthma who presents to the emergency department with a chief complaint of ongoing lower back pain and new upper back pain. The patient states for about a month she is been dealing with right lower paralumbar musculature pain. She states that she has had outpatient CT done and lumbar spine series done which she reports only showed a cyst in the right ovary. She states otherwise there was no findings to explain her pain. She was given ibuprofen and Robaxin. She states she is been taking his medications without any significant improvement. She reports about a week ago she started having some pain in the left upper mid back parathoracic area between the scapula and the spine. She states there is an associated stinging sensation and tingling. States she consulted with her primary who thought maybe she had shingles. She states she received no treatment for shingles and there has never been a rash that appeared. She states the pain is worse with movement and palpation. She denies any blunt injuries or trauma. Denies any urinary or bowel incontinence or retention. Denies any saddle anesthesia. Patient does report that prior to all these pains she recently begun a new exercise program. States that she is trying to lose weight and has been riding a bike several times a week which is new for her. My history differs from that of intake, the patient relates no diarrhea. TRAVEL OUTSIDE OF THE [place] IN LAST 30 DAYS: No - Related Data Allergies/Adverse Reactions: shellfish derived Allergy (Severe, Verified 12/20/18 10:48) shrimp Allergy (Severe, Verified 12/20/18 10:48) Home Medications: chlorthalidone. Buspirone Past Medical History - Social History Smoking Status: Unknown if Ever Smoked Family History: Reviewed & Not Pertinent, DM, Hypertension, Malignancy, Thyroid Disfunction - Past Medical History Cardiac Medical History: Reports: Hx Hypertension Pulmonary Medical History: Reports: Hx Asthma Renal/ Medical History: Reports: Hx Ectopic . Denies: Hx Peritoneal Dialysis GI Medical History: Reports: Hx Gastroesophageal Reflux Disease Musculoskeletal Medical History: Reports Hx Musculoskeletal Trauma - Nose and finger fracture Psychiatric Medical History: Reports: Hx Anxiety Traumatic Medical History: Reports: Hx Fractures - Nose and finger Past Surgical History: Reports: Hx Abdominal Surgery - umbilical hernia, Hx Section, Hx Gynecologic Surgery - Right oophorectomy for tubal , Hx Hysterectomy, Hx Oral Surgery - With symptoms, Hx Umbilical Hernia - Immunizations Immunizations up to date: Yes Hx Diphtheria, Pertussis, Tetanus Vaccination: No - Unknown Review of Systems - Review of Systems Constitutional: denies: Fever EENT: denies: Throat pain Cardiovascular: denies: Chest pain Respiratory: denies: Short of breath Gastrointestinal: denies: Abdominal pain Genitourinary: denies: Pain Female Genitourinary: denies: Vaginal discharge Musculoskeletal: Back pain, Muscle pain Skin: denies: Change in color Hematologic/Lymphatic: denies: Easy bleeding Neurological/Psychological: denies: Headaches Physical Exam - Vital signs Vitals: Temp Pulse Resp BP Pulse Ox 98.7 F 87 18 124/77 96 03/15/20 09:40 03/15/20 09:40 03/15/20 09:40 03/15/20 09:40 03/15/20 09:40 - General General appearance: Appears well, Alert In distress: None - Respiratory Respiratory status: No respiratory distress Chest status: Nontender Breath sounds: Normal Chest palpation: Normal - Cardiovascular Rhythm: Regular Heart sounds: Normal auscultation - Abdominal Inspection: Normal Distension: No distension Bowel sounds: Normal Tenderness: Nontender Organomegaly: No organomegaly - Back Back: Other - Tenderness to palpation right paralumbar musculature as well as the left parathoracic musculature proximal back between the scapula and the spine. No palpable spasms appreciated. No midline spinal tenderness. No obvious deformities. Normal straight leg raise bilaterally. Patient able to elevate great toes bilaterally. 2+ DP/PT bilaterally. Normal gait appreciated. - Neurological Neuro grossly intact: Yes Cognition: Normal Orientation: AAOx4 - Psychological Associated symptoms: Normal affect, Normal mood - Skin Skin Temperature: Warm Skin Moisture: Dry Skin Color: Normal, Other - No rash Course - Re-evaluation Re-evalutation: 03/15/20 12:37 Patient's urinalysis showing no evidence of acute process. She has some levoscoliosis in the lumbar spine with some apparent transition in the thoracic spine. Suspect this is partially responsible for some of her discomfort in relation to her new exercise regimens. We discussed this. We also discussed preventative measures, the importance of stretching and hydration. We will provide information about scoliosis and a short course of pain medications. She has ibuprofen prescription strength and Robaxin. She will follow-up with her regular doctor for ongoing evaluation and care. I advised she return here or any ER immediately with any new, persistent or worsening symptoms. She verbalized understood and agreed. - Vital Signs Vital signs: Temp Pulse Resp BP Pulse Ox 98.7 F 87 18 124/77 96 03/15/20 09:40 03/15/20 09:40 03/15/20 09:40 03/15/20 09:40 03/15/20 09:40 - Laboratory Laboratory results interpreted by me: 03/15/20 11:55 Urine Blood SMALL H Urine Urobilinogen 2.0 H Discharge - Discharge Clinical Impression: Scoliosis Qualifiers: Scoliosis type: unspecified scoliosis Spinal region: thoracolumbar Qualified Code(s): M41.9 - Scoliosis, unspecified Back pain Qualifiers: Back pain location: back pain in other location Chronicity: unspecified Qualified Code(s): M54.89 - Other dorsalgia Condition: Stable Disposition: HOME, SELF-CARE Instructions: Low Back Pain ([facility]), Chronic Back Pain ([facility]) Additional Instructions: Follow-up with your regular doctor in 2 to 3 days for reevaluation. Return here or any ER immediately with any new, persistent or worsening symptoms. Prescriptions: Tramadol HCl [Ultram 50 mg Tablet] 50 mg PO Q6HP PRN #12 tablet PRN Reason: Referrals: OBED DARDEN, BENEFITS CONSULTANT [Primary Care Provider] - Follow up as needed
--- NOTE | 2020-03-15 11:42 | RADIOLOGY REPORT (SQ) ---
EXAM DESCRIPTION: T SPINE AP/LAT IMAGES COMPLETED DATE/TIME: 03/15/2020 11:26 am REASON FOR STUDY: left upperback pain COMPARISON: None. NUMBER OF VIEWS: Two views. TECHNIQUE: AP and lateral radiographic images acquired of the thoracic spine. LIMITATIONS: None. FINDINGS: MINERALIZATION: Normal. ALIGNMENT: Normal. No scoliosis. VERTEBRAE: No fracture or bone lesion. Maintained height, normal segmentation. DISCS: No significant loss of height or significant narrowing. No large osteophytes. HARDWARE: None in the spine. MEDIASTINUM AND SOFT TISSUES: Normal heart size and aortic contour. No soft tissue abnormality. VISUALIZED LUNG BEAUCHAMP: Clear. OTHER: No other significant finding. IMPRESSION: NO SIGNIFICANT RADIOGRAPHIC FINDING IN THE THORACIC SPINE. TECHNICAL DOCUMENTATION: JOB ID: [id number] 2010 [employer]- All Rights Reserved Reading location - IP/workstation name: [email or web address]
[2020-03-15 12:26] LABS: APPEARANCE,URINE SLIGHTLY-CLOUDY; BILIRUBIN,URINE NEGATIVE (NEGATIVE); COLOR,URINE YELLOW; GLUCOSE, URINE NEGATIVE (NEGATIVE); KETONES,URINE NEGATIVE (NEGATIVE); PROTEIN,URINE NEGATIVE (NEGATIVE); URINE SPECIFIC GRAVITY 1.017
[2020-03-15 13:08] VITALS: BP 120/81
== END 2020-03-15 13:13 | disposition home or self-care (01) ==
LOC: ER 09:34
DX: M41.9 Scoliosis, unspecified (principal); M54.5 Low back pain; M54.6 Pain in thoracic spine; R10.31 Right lower quadrant pain; R20.0 Anesthesia of skin; M79.10 Myalgia, unspecified site; Z88.8 Allergy status to other drugs, medicaments and biological substances; Z79.899 Other long term (current) drug therapy; I10 Essential (primary) hypertension; J45.909 Unspecified asthma, uncomplicated
CPT/HCPCS: 72070; 81001; 99284

== ENCOUNTER 2020-05-21 04:08 | Emergency (ER) | payer MEDICAID ==
[2020-05-21 05:41] LABS: ABSOLUTE EOSINOPHILS # (AUTO) 0.1 10^3/uL (0.0-0.6); ABSOLUTE LYMPHOCYTES (AUTO) 2.2 10^3/uL (0.5-4.7); ABSOLUTE MONOCYTES (AUTO) 0.4 10^3/uL (0.1-1.4); ABSOLUTE NEUT (AUTO) 1.4 10^3/uL (1.7-8.2); EOSINOPHILS % (AUTO) 1.7 % (0-6); HEMOGLOBIN 12.2 g/dL (12.0-15.5); LYMPHOCYTES % (AUTO) 54.1 % (13-45); MEAN CORPUSCULAR HEMOGLOBIN 27.9 pg (27.0-33.4); MEAN CORPUSCULAR HGB CONC 33.9 g/dL (32.0-36.0); MEAN CORPUSCULAR VOLUME 82 fl (80-97); PLATELET COUNT 369 10^3/uL (150-450); RED BLOOD COUNT 4.37 10^6/uL (3.72-5.28); RED CELL DISTRIBUTION WIDTH 12.7 % (11.5-14.0); SEGMENTED NEUTROPHILS % (AUTO) 33.2 % (42-78); TOTAL CELLS COUNTED % (AUTO) 100 %; WHITE BLOOD COUNT 4.1 10^3/uL (4.0-10.5)
[2020-05-21 06:01] LABS: ALBUMIN 3.9 g/dL (3.5-5.0); ALKALINE PHOSPHATASE 97 U/L (38-126); ANION GAP 7 (5-19); ASPARTATE AMINO TRANSFERASE 26 U/L (14-36); BILIRUBIN,DIRECT 0.2 mg/dL (0.0-0.4); BILIRUBIN,TOTAL 0.8 mg/dL (0.2-1.3); BLOOD UREA NITROGEN 10 mg/dL (7-20); CALCIUM 9.9 mg/dL (8.4-10.2); CARBON DIOXIDE 30 mmol/L (22-30); CHLORIDE 102 mmol/L (98-107); CREATINE KINASE 205 U/L (30-135); GLUCOSE 109 mg/dL (75-110); POTASSIUM 3.7 mmol/L (3.6-5.0)
--- NOTE | 2020-05-21 06:01 | ER Document Report ---
ED General - General TRAVEL OUTSIDE OF THE [place] IN LAST 30 DAYS: No <VIANEY SCHMITZ - Last Filed: 05/21/20 07:49> <MANSI CRISTOBAL Beti - Last Filed: 05/21/20 09:39> - General Chief Complaint: Palpitations Stated Complaint: CHEST PAIN Time Seen by Provider: 05/21/20 05:17 Primary Care Provider: OBED DARDEN NP [Primary Care Provider] - Follow up as needed - [facility] Notes: 49-year-old female with history of hypertension, asthma to the emergency department with complaints of palpitations, fluttering in her chest that is been occurring at night for the past week. She states she is waking up with this symptom. She states that this morning she had midsternal chest pain with it. It awoke her from sleep this morning as well. She denies any diaphoresis, shortness of breath or nausea or vomiting. She states she does have a little bit of left arm numbness. She states that she has had some ankle swelling as well. She states that she is not sure why this is happening. She states that she recently was placed on tramadol and gabapentin for presumed shingles episode. She never did develop an a rash but has been experiencing unilateral back itching and stinging pain. She thought that maybe it was the gabapentin that was causing the heart fluttering symptoms. She states that she had increased her dose from 300 mg once a day to 3 times a day. She states that she stopped the gabapentin over the past week. She states she has had palpitations in the past and worn a Holter monitor for 1 day. It did not show any sort of tachyarrhythmia. She denies any fevers or chills. She is not sure how long the episodes last but she does not experience them during the day. She states that her primary care doctor told her that she was having anxiety. Of note, she has had 4 family members in the past 18 to 24 months. She states that she does not really feel like she is been able to truly grieve them. She denies any SI, HI, hallucinations. She does not smoke, she does not do drugs. She is not on any exogenous hormones. She is not recently had any surgery. She is not recently been traveling. She is never had a DVT or PE. She has never had a heart attack. There is a family history of heart failure. (VIANEY SCHMITZ) - Related Data Allergies/Adverse Reactions: shellfish derived Allergy (Severe, Verified 12/20/18 10:48) shrimp Allergy (Severe, Verified 12/20/18 10:48) Past Medical History - General Information source: Patient - Social History Smoking Status: Never Smoker Family History: Reviewed & Not Pertinent, DM, Hypertension, Malignancy, Thyroid Disfunction Patient has homicidal ideation: No - Past Medical History Cardiac Medical History: Reports: Hx Hypertension Pulmonary Medical History: Reports: Hx Asthma Renal/ Medical History: Reports: Hx Ectopic . Denies: Hx Peritoneal Dialysis GI Medical History: Reports: Hx Gastroesophageal Reflux Disease Musculoskeletal Medical History: Reports Hx Musculoskeletal Trauma - Nose and finger fracture Psychiatric Medical History: Reports: Hx Anxiety Traumatic Medical History: Reports: Hx Fractures - Nose and finger Past Surgical History: Reports: Hx Abdominal Surgery - umbilical hernia, Hx Farzad arean Section, Hx Gynecologic Surgery - Right oophorectomy for tubal , Hx Hysterectomy, Hx Oral Surgery - With symptoms, Hx Umbilical Hernia - Immunizations Immunizations up to date: Yes Hx Diphtheria, Pertussis, Tetanus Vaccination: No - Unknown <VIANEY SCHMITZ - Last Filed: 05/21/20 07:49> Review of Systems - Review of Systems Constitutional: denies: Chills, Fever EENT: No symptoms reported Cardiovascular: Chest pain, Palpitations, Heart racing. denies: Syncope, Dizziness, Lightheaded Respiratory: denies: Cough, Short of breath Gastrointestinal: denies: Abdominal pain, Diarrhea, Nausea, Vomiting Musculoskeletal: No symptoms reported Skin: No symptoms reported Neurological/Psychological: Tingling - Left arm tingling. denies: Headaches -: Yes All other systems reviewed and negative <VIANEY SCHMITZ - Last Filed: 05/21/20 07:49> Physical Exam - Vital signs Interpretation: Hypertensive - General General appearance: Appears well, Alert In distress: None - HEENT Head: Normocephalic, Atraumatic Eyes: Normal Pupils: PERRL - Respiratory Respiratory status: No respiratory distress Chest status: Nontender. No: Pain on movement, Pain with cough, Accessory muscle use Breath sounds: Normal. No: Rales, Rhonchi, Wheezing Chest palpation: Normal - Cardiovascular Rhythm: Regular Heart sounds: Normal auscultation Murmur: No - Abdominal Inspection: Normal Distension: No distension Bowel sounds: Normal Tenderness: Nontender Organomegaly: No organomegaly - Neurological Neuro grossly intact: Yes Cognition: Normal Orientation: AAOx4 George Coma Scale Eye Opening: Spontaneous [place] Coma Scale Verbal: Oriented [place] Coma Scale Motor: Obeys Commands [place] Coma Scale Total: 15 Speech: Normal Motor strength normal: LUE, RUE, LLE, RLE Additional motor exam normals: Equal alining inspector, Pronator drift Sensory: Normal - Psychological Associated symptoms: Normal affect, Normal mood - Skin Skin Temperature: Warm Skin Moisture: Dry Skin Color: Normal <VIANEY SCHMITZ - Last Filed: 05/21/20 07:49> - Vital signs Vitals: Temp Pulse Resp BP Pulse Ox 98.1 F 68 20 131/64 H 97 05/21/20 04:41 05/21/20 04:41 05/21/20 04:41 05/21/20 04:41 05/21/20 04:41 - Cardiovascular Notes: Mild bilateral ankle nonpitting edema. No calf pain. (VIANEY SCHMITZ) Course - Laboratory Result Diagrams: 05/21/20 05:20 05/21/20 05:20 - Diagnostic Test Radiology reviewed: Image reviewed, Reports reviewed <VIANEY SCHMITZ - Last Filed: 05/21/20 07:49> - Laboratory Result Diagrams: 05/21/20 05:20 05/21/20 05:20 <MANSI CRISTOBAL - Last Filed: 05/21/20 09:39> - Re-evaluation Re-evalutation: 05/21/20 Patient with chest pain and heart palpitations that awoke her from sleep this morning. Plan to obtain labs and trend troponins. EKG reassuring. 05/21/20 07:50 Patient has been resting in the emergency department. She has reassuring initial labs. We will repeat troponins. Patient turned over to nutrition for Mel. She will await results disposition patient appropriately. (VIANEY SCHMITZ) 05/21/20 09:37 Repeat troponin was negative. This was discussed with the patient. She will have outpatient follow-up. Patient agreeable to discharge plan, ED return precautions discussed, patient verbalizes understanding and agreement with same. (MANSI CRISTOBAL) - Vital Signs Vital signs: Temp Pulse Resp BP Pulse Ox 98.1 F 68 14 122/84 98 05/21/20 04:41 05/21/20 04:41 05/21/20 06:00 05/21/20 06:00 05/21/20 06:00 - Laboratory Laboratory results interpreted by me: 05/21/20 05/21/20 05:20 05:20 Lymph % (Auto) 54.1 H Absolute Neuts (auto) 1.4 L Seg Neutrophils % 33.2 L Creatine Kinase 205 H - EKG Interpretation by Me Additional EKG results interpreted by me: 05/21/20 06:48 Rate 66, rhythm: Sinus, interpretation no STEMI. T wave inversions lead III and aVF. No LVH, normal axis. T wave inversions are not new in comparison to an EKG in February 2019. 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 I have included the phone number below our on-call cardiology clinic in case you cannot get into see anyone else. Return to the emergency department with any new or worsening symptoms. Forms: Return to Work Referrals: LUBNA MORILLO MD [ACTIVE STAFF] - Follow up as needed
[2020-05-21 06:13] LABS: CREATINE KINASE MB 0.88 ng/mL (<4.55)
[2020-05-21 06:15] LABS: TROPONIN I < 0.012 ng/mL
--- NOTE | 2020-05-21 06:52 | RADIOLOGY REPORT (SQ) ---
EXAM DESCRIPTION: XR CHEST 2 VIEWS COMPLETED DATE/TME: 05/21/2020 05:51 CLINICAL HISTORY: palpitations COMPARISON: None. FINDINGS: Frontal and lateral radiographic views of the chest. Cardiomediastinal silhouette: Normal size and contour. Lungs: No consolidation, pneumothorax, or pleural effusion. Bones: No acute osseous abnormality. Leads overlie the chest. Upper abdomen: No abnormality identified. IMPRESSION: 1. No acute pulmonary process identified.
[2020-05-21] MEDS ORDERED: ASPIRIN 325 MG TABLET PO ONE (07:54)
[2020-05-21 09:50] VITALS: BP 135/82
--- NOTE | 2020-05-21 18:08 | EKG REPORT ---
SEVERITY:- BORDERLINE ECG - SINUS RHYTHM NONSPECIFIC ST-T CHANGES- INFERIOR LEADS : Confirmed by: Kashif Briscoe MD 21-May-2020 18:07:34
== END 2020-05-21 09:51 | disposition home or self-care (01) ==
LOC: ER 04:08
DX: R00.2 Palpitations (principal); R07.9 Chest pain, unspecified; I10 Essential (primary) hypertension; J45.909 Unspecified asthma, uncomplicated
CPT/HCPCS: 36415; 71046; 80053; 82550; 82553; 83735; 83880; 84443; 84484; 85025; 93005; 93010; 99285